=== PATIENT | female | born 1995 | race Caucasian/White ===

== ENCOUNTER 2020-12-30 16:24 | Emergency (ER) | payer OTHER ==
[~2020-12-30 16:24] MED LIST: AUGMENTIN 875-1 EACH PO; COLACE 100MG C100 MG PO; FEOSOL325 MG PO; IBUPROFEN600 MG PO; KEFLEX CAP 500500 MG PO; KEFLEX500 MG PO; LEVAQUIN500 MG PO; LODINE CAP 300300 MG PO; LORTAB 5-325 M1 EACH PO; OMNICEF 300 MG300 MG PO; PRENATAL VITAM1 EAC3 PO
[2020-12-30] MEDS ORDERED: AUGMENTIN 875-1 EACH PO (17:34)
[2020-12-30] MEDS ORDERED: TORADOL 10 MG T10 MG PO (17:34)
== END 2020-12-30 17:36 | disposition home or self-care (01) ==
LOC: ER1 16:24
DX: K04.7 Periapical abscess without sinus (principal); F17.210 Nicotine dependence, cigarettes, uncomplicated
CPT/HCPCS: 99282

== ENCOUNTER → 2021-12-25 | Outpatient (CLI) | payer OTHER ==
[~2021-12-25] MED LIST changes: +TORADOL 10 MG T10 MG PO
== END ==
LOC: KOH-I 15:49
DX: R31.0 Gross hematuria (principal)
CPT/HCPCS: 74176